=== PATIENT | female | born 1960 | race Caucasian/White ===

== ENCOUNTER 2017-07-23 13:15 | Emergency (ER) | payer OTHER ==
[2017-07-23] MEDS ORDERED: ASPIRIN 81 MG TAB.CHEW PO ONE (13:30)
[2017-07-23] MEDS ORDERED: ASPIRIN 81 MG TAB.CHEW ONE (13:35)
--- NOTE | 2017-07-23 13:38 | ERNOTE ---
Medical Problem HPI - General Chief Complaint: General Assessment Time Seen by Provider: 07/23/17 13:17 Source: patient, family Exam Limitations: no limitations - Immun/Allergies/Home Medications Immunizations: IMMUNIZATION HX Immunizations Up to Date Yes History of Influenza Vaccine No Hx Pneumococcal Vaccination No Allergies/Adverse Reactions: Allergies azithromycin [From Zithromax] Allergy (Verified 07/23/17 13:30) Anaphylaxis Iodinated Contrast- Oral and IV Dye Allergy (Verified 07/23/17 13:30) Hives Home Medications: HOME MEDICATIONS Gabapentin [Neurontin] 300 mg PO DAILY 07/23/17 [Last Taken Unknown] HYDROcodone/ACETAMINOPHEN [Vicodin Es 7.5-300 mg Tablet] 1 each PO Q46H [Last Taken Unknown] Lisinopril [Zestril] 2.5 mg PO DAILY 07/23/17 [Last Taken Unknown] Melatonin 10 mg PO HS 07/23/17 [Last Taken Unknown] hydrOXYzine HCL [Atarax] 25 mg PO HS 07/23/17 [Last Taken Unknown] tiZANidine HCL [Tizanidine HCl] 6 mg PO HS 07/23/17 [Last Taken Unknown] - History of Present History Narrative: Patient has been having pain under the left jaw and numbness in the left arm for approximately 3 weeks and today she was shopping with her daughter and the daughter became worried and asked mother to come in and get checked out. When the pain arises under the left jaw, which is present with palpation, nor the patient can take aspirin and it will go away. Timing: constant Severity: mild Modifying Factors - (Improves): Present: other - aspirin Review of Systems - Review of Systems Constitutional: Present: See HPI EYE: Present: no symptoms reported ENT: Present: See HPI Respiratory: Present: no symptoms reported Cardiology: Present: no symptoms reported Gastrointestinal/Abdominal: Present: no symptoms reported Genitourinary: Present: no symptoms reported Musculoskeletal: Present: no symptoms reported Skin: Present: no symptoms reported Neurological: Present: no symptoms reported Endocrine: Present: no symptoms reported Hematologic/Lymphatic: Present: no symptoms reported Psych: Present: no symptoms reported - Patient's Past Medical History Patient History - Medical: Anxiety, Chronic Pain Patient History - Cardiac/Respiratory: Hypertension, Hyperlipidemia Patient History - Cancer: No Hx of Cancer Patient History - Surgical Procedures: Hysterectomy, Other Patient History - Other: None LMP (females 10-50): Menopausal - Social History Living Situations: home Abuse History: No History of abuse Psych History: Hx of Anxiety, Current tx/ever been on anti-depressants or anti- anxiety meds Smoking Status: Never smoker Have you smoked in the past 12 months: No Alcohol Use: occasionally Drug Use: none - Immunizations Immunizations Up to Date: Yes Hx Pneumococcal Vaccination: No History of Influenza Vaccine: No Physical Exam - Physical Exam General Appearance: Present: wd/wn, alert, mild distress - upon palpation of the submandibular lymph node on the left Head Exam: Present: normal inspection Eye Exam: Normal inspection: bilateral, PERRL: bilateral Ears, Nose, Throat: Present: normal ENT inspection, H, normal pharynx Neck: Present: normal inspection, nontender Respiratory: Present: no respiratory distress, normal breath sounds, no accessory muscle use, chest nontender, lungs clear Cardiovascular/Chest: Present: regular rate, rhythm, no murmur, normal peripheral pulses Gastrointestinal/Abdominal: Present: normal bowel sounds, nontender, nondistended, soft, no organomegaly Rectal Exam: Present: deferred Back Exam: Present: normal inspection, normal range of motion Extremity Exam: Present: normal inspection, non-tender, no edema, normal range of motion Neurological Exam: Present: alert, oriented, normal mood/affect Skin Exam: Present: normal color, warm/dry Lymphatic Exam: Present: no adenopathy ED Progress - Results and Orders Patient's Lab Results:: I have reviewed the patient's lab results. - Vital Signs Patient's Vital Signs:: I have reviewed the patient's vital signs. Vital Signs: Vital Signs 07/23/17 13:21 Temperature 36.6 C Pulse Rate 63 Respiratory 16 Rate Blood Pressure 198/85 O2 Sat by Pulse 96 Oximetry - EKG EKG: NSR - X-Ray X-Ray #1 X-Ray: chest Interpretation: Reviewed by me - Progress/Reassessment Chief Complaint: General Assessment Plan - Plan Plan: While be reasonable to assume that all the pain from the left infra mandible area is coming solely from the lymph node that is palpable tender, I believe the patient would merit from at least a treadmill Cardiolite stress test. Patient will be referred back to her family physician so that they can arrange that in the immediate future. Departure Clinical Impression: Adenitis, Paresthesia - Departure Disposition: Home self-care Condition: Good Instructions: Lymphadenopathy, Paresthesia, [id number] Additional Instructions: Call your family physician to arrange for an outpatient stress test.
[2017-07-23 13:50] LABS: Hematocrit 40.2 % (37.0-47.0); Hemoglobin 13.6 gm/dL (12.5-16.0); Mean Corpuscular Hemoglobin 29.8 pg (27-31); Mean Corpuscular Hgb Conc 33.8 g/dl (32-36); Mean Platelet Volume 9.6 fl (6.0-9.5); Neutrophil # 3.3 K/mm3 (1.3-6.0); Neutrophil % 54.7 % (42-75.0); Platelet Count 265 K/mm3 (150-450); Red Blood Count 4.57 M/mm3 (4.2-5.4); Red Cell Distribution Width 12.8 % (11.5-14.0); White Blood Count 5.9 K/mm3 (4.0-10.5)
[2017-07-23 14:10] LABS: ALT 34 U/L (19-67); AST 18 U/L (0-48); Albumin * 3.7 gm/dl (3.4-5.0); Alkaline Phosphatase * 76 U/L (50-170); Anion Gap 11.4 mmol/L (6.8-13.8); BUN/Creatinine Ratio 12.4 (9.0-21.6); Bilirubin, Total 0.4 mg/dL (0.0-1.1); Blood Urea Nitrogen 11 mg/dL (3-23); Ca. Corrected For Albumin 8.6 mg/dL (8.4-10.2); Calcium * 8.7 mg/dL (7.9-10.9); Chloride 105 mmol/L (97-106); Glucose * 124 mg/dL (70-110); Magnesium 1.6 mg/dL (1.2-2.8); Potassium 3.4 mmol/L (3.4-4.6); Sodium 142 mmol/L (132-142); Total Protein 6.9 gm/dL (6.2-8.2); Troponin I Less than 0.017 ng/ml (0.00-0.10)
[2017-07-23 14:17] VITALS: BP 160/83
[2017-07-23 14:26] LABS: Urine Bilirubin Negative (NEGATIVE); Urine Blood Negative /ul (NEGATIVE); Urine Ketone Negative (NEGATIVE); Urine Nitrite Negative (NEGATIVE); Urine Protein Negative (NEGATIVE); Urine Specific Gravity <=1.005 SP.GR. (1.005-1.010); Urine Urobilinogen Normal (NORMAL)
[2017-07-23 14:35] LABS: Urine Appearance Clear; Urine Bacteria TRACE; Urine Color Pale Yellow; Urine RBC None Seen /hpf (0-5); Urine WBC None Seen /hpf (0-5)
== END 2017-07-23 14:50 | disposition home or self-care (01) ==
LOC: ER 13:15
DX: I88.9 Nonspecific lymphadenitis, unspecified (principal); R20.2 Paresthesia of skin; I10 Essential (primary) hypertension; F41.9 Anxiety disorder, unspecified

== ENCOUNTER 2017-09-05 08:57 | Emergency (ER) | payer OTHER ==
[2017-09-05] MEDS ORDERED: NORMAL SALINE 1,000 ML IV ONE (09:22)
[2017-09-05] MEDS ORDERED: ONDANSETRON HCL/PF 2 MG/ML VIAL IV ONE (09:22)
--- NOTE | 2017-09-05 09:28 | ERNOTE ---
Abdominal HPI - General Chief Complaint: Nausea/Vomiting Time Seen by Provider: 09/05/17 09:10 Source: patient Exam Limitations: no limitations - Immun/Allergies/Home Medications Immunizatons: IMMUNIZATION HX Immunizations Up to Date Yes History of Influenza Vaccine Yes Hx Pneumococcal Vaccination No Allergies/Adverse Reactions: Allergies azithromycin [From Zithromax] Allergy (Verified 09/05/17 09:19) Anaphylaxis Iodinated Contrast- Oral and IV Dye Allergy (Verified 09/05/17 09:19) Hives promethazine [From Phenergan] Adverse Reaction (Verified 09/05/17 09:19) Home Medications: HOME MEDICATIONS Gabapentin [Neurontin] 300 mg PO DAILY 07/23/17 [Last Taken Unknown] Lisinopril [Zestril] 2.5 mg PO DAILY 07/23/17 [Last Taken Unknown] hydrOXYzine HCL [Atarax] 25 mg PO HS 07/23/17 [Last Taken Unknown] tiZANidine HCL [Tizanidine HCl] 6 mg PO HS 07/23/17 [Last Taken Unknown] Ondansetron [Zofran Odt] 4 mg PO Q4H PRN #6 tab 09/05/17 [Last Taken Unknown] - History of Present Illness Narrative: Patient started with vomiting and diarrhea about 12 hours ago, diarrhea every hour, vomiting non stop, last prior to coming here. She ate thanks giving diner at noon yesterday, is not aware of any sick contacts, periumbilical abdominal pain Date (Duration): 09/04/17 Time (Timing): 21:00 Timing: constant Quality: moderate, cramping Activities at Onset: none Modifying Factors - (Improves): Present: lying down Modifying Factors - (Worsens): Present: sitting up, movement Associated Symptoms: Present: nausea, vomiting. Absent: diarrhea-gross blood, diarrhea-mucous, fever/chills Prior Abdominal Problems: Present: none Review of Systems - Review of Systems Constitutional: Absent: recent illness, fever EYE: Absent: vision changes ENT: Absent: nose congestion Respiratory: Absent: shortness of breath, cough Cardiology: Absent: chest pain Gastrointestinal/Abdominal: Present: See HPI, nausea, vomiting, diarrhea, abdominal pain Genitourinary: Present: no symptoms reported Musculoskeletal: Absent: back pain Neurological: Present: headache - Patient's Past Medical History Patient History - Medical: Anxiety, Chronic Pain Patient History - Cardiac/Respiratory: Hypertension, Hyperlipidemia Patient History - Cancer: No Hx of Cancer Patient History - Surgical Procedures: Hysterectomy, Other Patient History - Other: None - Social History Living Situations: home Abuse History: No History of abuse Psych History: Hx of Anxiety, Current tx/ever been on anti-depressants or anti- anxiety meds Smoking Status: Never smoker Have you smoked in the past 12 months: No Do you dip or chew tobacco: No Alcohol Use: rarely Drug Use: none - Immunizations Immunizations Up to Date: Yes Hx Pneumococcal Vaccination: No History of Influenza Vaccine: Yes Physical Exam - Physical Exam General Appearance: Present: wd/wn, alert, mild distress, obese Head Exam: Present: normal inspection Eye Exam: Normal inspection: bilateral, PERRL: bilateral Respiratory: Present: no respiratory distress, normal breath sounds, no accessory muscle use, lungs clear Cardiovascular/Chest: Present: regular rate, rhythm, no murmur Gastrointestinal/Abdominal: Present: normal bowel sounds, nondistended, soft, tenderness - periumbilacal Neurological Exam: Present: alert, oriented, normal mood/affect Skin Exam: Present: normal color, warm/dry ED Progress - Results and Orders Patient's Lab Results:: I have reviewed the patient's lab results. - Vital Signs Patient's Vital Signs:: I have reviewed the patient's vital signs. Vital Signs: Vital Signs 09/05/17 09:12 Temperature 37.6 C H Pulse Rate 104 H Respiratory 16 Rate Blood Pressure 153/98 O2 Sat by Pulse 97 Oximetry - X-Ray X-Ray #1 X-Ray: abdomen - paucity of bowel gas, no acute findings Interpretation: Reviewed by me - Progress/Reassessment Chief Complaint: Nausea/Vomiting Progress Note-Subjective: 09/05/17 11:12 patient feeling much better, no pain, tolerating ice chips Departure Clinical Impression: Gastroenteritis and colitis, viral - Departure Disposition: Home self-care Condition: Good Instructions: Viral Gastroenteritis, Adult, [id number], Food Choices to Help Relieve Diarrhea, Adult Additional Instructions: call your doctor as needed Prescriptions: Ondansetron [Zofran Odt] 4 mg PO Q4H PRN #6 tab PRN Reason: Nausea And Vomiting
[2017-09-05 09:40] LABS: Hematocrit 42.6 % (37.0-47.0); Hemoglobin 14.4 gm/dL (12.5-16.0); Mean Cell Volume 87.7 fl (78-100); Mean Corpuscular Hemoglobin 29.6 pg (27-31); Mean Corpuscular Hgb Conc 33.8 g/dl (32-36); Mean Platelet Volume 9.3 fl (6.0-9.5); Neutrophil # 9.2 K/mm3 (1.3-6.0); Neutrophil % 93.5 % (42-75.0); Platelet Count 266 K/mm3 (150-450); Red Blood Count 4.86 M/mm3 (4.2-5.4); Red Cell Distribution Width 12.9 % (11.5-14.0); White Blood Count 9.8 K/mm3 (4.0-10.5)
[2017-09-05 09:54] LABS: Anion Gap 12.7 mmol/L (6.8-13.8); BUN/Creatinine Ratio 20.6 (9.0-21.6); Bilirubin, Total 0.6 mg/dL (0.0-1.1); Ca. Corrected For Albumin 8.5 mg/dL (8.4-10.2); Calcium * 8.8 mg/dL (7.9-10.9); Carbon Dioxide 28.2 mmol/L (24-32.6); Potassium 3.9 mmol/L (3.4-4.6); Total Protein 7.5 gm/dL (6.2-8.2)
[2017-09-05] MEDS ORDERED: ONDANSETRON HCL/PF 2 MG/ML VIAL ONE (10:16)
[2017-09-05 10:26] LABS: Urine Bilirubin Negative (NEGATIVE); Urine Blood 25 /ul (NEGATIVE); Urine Ketone Negative (NEGATIVE); Urine Nitrite Negative (NEGATIVE); Urine Protein Negative (NEGATIVE); Urine Urobilinogen Normal (NORMAL)
[2017-09-05 10:41] LABS: Urine Appearance Clear; Urine Bacteria TRACE; Urine Color Yellow; Urine RBC TRACE /hpf (0-5); Urine WBC None Seen /hpf (0-5)
[2017-09-05 11:37] VITALS: BP 147/94
== END 2017-09-05 11:15 | disposition home or self-care (01) ==
LOC: ER 08:57
DX: J11.2 Influenza due to unidentified influenza virus with gastrointestinal manifestations (principal); G89.29 Other chronic pain; I10 Essential (primary) hypertension; E78.5 Hyperlipidemia, unspecified; F41.9 Anxiety disorder, unspecified
CPT/HCPCS: 36415; 74020; 80053; 81001; 82150; 83690; 85025; 96374; 99284; J2405